=== PATIENT | female | born 2000 | race Caucasian/White ===

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

== ENCOUNTER 2021-04-09 16:19 | Emergency (ER) | payer OTHER ==
[~2021-04-09 16:19] MED LIST changes: +FAMOTIDINE20 MG PO; +HYDROXYZINE HCL10 MG PO; +NORETHINDRONE AC5 MG PO; +ONDANSETRON ODT4 MG PO; +WELLBUTRIN SR150 M1 PO; +ZOLOFT100 MG PO
[2021-04-09 19:54] LABS: HEMOGLOBIN 13.9 gm/dl (12.3-15.3); RED BLOOD COUNT 4.86 M/UL (4.00-5.10); WHITE BLOOD COUNT 12.2 K/UL (4.5-11.0)
[2021-04-09 20:22] LABS: BUN/CREATININE RATIO 10 (0-10)
== END 2021-04-09 23:01 | disposition home or self-care (01) ==
LOC: ER1 16:19
PROVIDERS: Emergency Medicine
DX: R10.31 Right lower quadrant pain (principal); Z90.49 Acquired absence of other specified parts of digestive tract
CPT/HCPCS: 80053; 81001; 83690; 84703; 85025; 87086; 96374; 96375; 99284; J2270; J2405; Q9967

== ENCOUNTER 2021-04-11 03:52 | Emergency (ER) | payer OTHER ==
[2021-04-11 04:52] LABS: HEMOGLOBIN 13.2 gm/dl (12.3-15.3); RED BLOOD COUNT 4.68 M/UL (4.00-5.10)
[2021-04-11 04:55] LABS: WHITE BLOOD COUNT 15.3 K/UL (4.5-11.0)
[2021-04-11 04:57] LABS: BUN/CREATININE RATIO 13 (0-10)
== END 2021-04-11 08:37 | disposition home or self-care (01) ==
LOC: ER1 03:52
PROVIDERS: Emergency Medicine
DX: J84.10 Pulmonary fibrosis, unspecified (principal); Z20.822 Contact with and (suspected) exposure to COVID-19
CPT/HCPCS: 0240U; 71045; 71250; 80053; 82550; 82553; 83874; 84484; 85025; 85379; 93005; 94664; 96374; 99285; J1885

== ENCOUNTER → 2021-04-17 | Outpatient (CLI) | payer BC, OTHER | LOC: RAD 12:54 | DX: M54.2 Cervicalgia (principal); M54.6 Pain in thoracic spine; M54.50 Low back pain, unspecified; M48.061 Spinal stenosis, lumbar region without neurogenic claudication | CPT/HCPCS: 72040; 72072; 72100 ==

== ENCOUNTER 2021-04-23 01:30 | Emergency (ER) | payer BC, OTHER ==
[2021-04-23] MEDS ORDERED: PREDNISONE50 MG PO (02:04)
[2021-04-23] MEDS ORDERED: BENADRYL 25MG C25 MG PO (02:04)
[2021-04-23] MEDS ORDERED: PEPCID20 MG PO (02:04)
== END 2021-04-23 02:20 | disposition home or self-care (01) ==
LOC: ER1 01:30
DX: L50.0 Allergic urticaria (principal); Z90.49 Acquired absence of other specified parts of digestive tract
CPT/HCPCS: 96372; 99282; J2930

== ENCOUNTER 2021-04-26 02:26 | Emergency (ER) | payer BC, OTHER ==
[~2021-04-26 02:26] MED LIST changes: +BENADRYL 25MG C25 MG PO; +PREDNISONE50 MG PO
[2021-04-26] MEDS ORDERED: MEDROL DOSEPAK 24 MG PO (05:19)
== END 2021-04-26 06:00 | disposition home or self-care (01) ==
LOC: ER1 02:26
DX: M54.42 Lumbago with sciatica, left side (principal)
CPT/HCPCS: 72131; 96372; 99283; J1885; J2930

== ENCOUNTER 2021-04-27 23:36 | Emergency (ER) | payer BC, OTHER ==
[~2021-04-27 23:36] MED LIST changes: +MEDROL DOSEPAK 24 MG PO
[2021-04-28] MEDS ORDERED: LODINE CAP 300300 MG PO (00:27)
== END 2021-04-28 00:51 | disposition home or self-care (01) ==
LOC: ER1 23:36
DX: M54.50 Low back pain, unspecified (principal); G89.29 Other chronic pain; Z90.49 Acquired absence of other specified parts of digestive tract
CPT/HCPCS: 96372; 99283; J1100; J1885; J2360

== ENCOUNTER → 2021-04-29 | Outpatient (CLI) | payer BC, OTHER ==
[~2021-04-29] MED LIST changes: +LODINE CAP 300300 MG PO
== END ==
LOC: HEART 5 13:40
DX: J84.10 Pulmonary fibrosis, unspecified (principal)
CPT/HCPCS: 94010

== ENCOUNTER 2021-05-26 21:51 | Emergency (ER) | payer OTHER ==
[2021-05-27] MEDS ORDERED: CEPHALEXIN500 M1 PO (00:38)
[2021-05-27] MEDS ORDERED: COLACE 100MG C100 MG PO (00:49)
== END 2021-05-27 01:21 | disposition home or self-care (01) ==
LOC: ER1 21:51
DX: J03.90 Acute tonsillitis, unspecified (principal); K59.00 Constipation, unspecified; R82.71 Bacteriuria; Z20.822 Contact with and (suspected) exposure to COVID-19
CPT/HCPCS: 0240U; 81001; 84703; 87081; 87086; 87880; 99283

== ENCOUNTER 2021-07-10 18:43 | Emergency (ER) | payer OTHER ==
[~2021-07-10 18:43] MED LIST changes: +CEPHALEXIN500 M1 PO; +COLACE 100MG C100 MG PO
[2021-07-10 20:48] LABS: HEMOGLOBIN 13.7 gm/dl (12.3-15.3); RED BLOOD COUNT 4.79 M/UL (4.00-5.10); WHITE BLOOD COUNT 13.6 K/UL (4.5-11.0)
[2021-07-10 21:18] LABS: BUN/CREATININE RATIO 14 (0-10)
[2021-07-10] MEDS ORDERED: IBUPROFEN800 MG PO (23:16)
== END 2021-07-10 23:49 | disposition home or self-care (01) ==
LOC: ER1 18:43
PROVIDERS: Preventive Medicine Occupational Medicine
DX: N83.202 Unspecified ovarian cyst, left side (principal); J45.909 Unspecified asthma, uncomplicated
CPT/HCPCS: 80053; 81001; 83690; 84703; 85025; 85652; 86140; 87086; 96374; 99284; J1885; Q9967

== ENCOUNTER → 2021-07-16 | Outpatient (CLI) | payer OTHER | LOC: HEART 5 04:30 | DX: R06.00 Dyspnea, unspecified (principal) | CPT/HCPCS: 94060; 94729 ==

== ENCOUNTER 2021-08-03 22:05 | Emergency (ER) | payer OTHER ==
[2021-08-03 23:07] LABS: HEMOGLOBIN 13.3 gm/dl (12.3-15.3); RED BLOOD COUNT 4.64 M/UL (4.00-5.10); WHITE BLOOD COUNT 9.8 K/UL (4.5-11.0)
[2021-08-03 23:41] LABS: BUN/CREATININE RATIO 12 (0-10)
[2021-08-04] MEDS ORDERED: ZOFRAN ODT 4 MG4 MG PO (00:42)
== END 2021-08-04 01:27 | disposition home or self-care (01) ==
LOC: ER1 22:05
PROVIDERS: Family Medicine
DX: R10.32 Left lower quadrant pain (principal); G89.29 Other chronic pain; R11.2 Nausea with vomiting, unspecified; Z87.42 Personal history of other diseases of the female genital tract
CPT/HCPCS: 80053; 81001; 83690; 84703; 85025; 96374; 96375; 99284; J2270; J2405

== ENCOUNTER 2021-11-25 19:07 | Observation (INO) | payer OTHER ==
[~2021-11-25] VITALS: Ht 149.9 cm; Wt 83.5 kg
[2021-11-25 19:40] LABS: HEMOGLOBIN 13.6 gm/dl (12.3-15.3); RED BLOOD COUNT 4.74 M/UL (4.00-5.10); WHITE BLOOD COUNT 12.6 K/UL (4.5-11.0)
[2021-11-25 19:56] LABS: BUN/CREATININE RATIO 13 (0-10)
[2021-11-26 05:49] LABS: HEMOGLOBIN 13.1 gm/dl (12.3-15.3); RED BLOOD COUNT 4.73 M/UL (4.00-5.10); WHITE BLOOD COUNT 11.1 K/UL (4.5-11.0)
[2021-11-26] MEDS ORDERED: PROAIR HFA8.5 GM INH (09:14)
[2021-11-27] MEDS ORDERED: HYDROCODONE-AC1 EACH PO (10:09)
[2021-11-27] MEDS ORDERED: IBUPROFEN600 MG PO (10:09)
[2021-11-27] MEDS ORDERED: DOCUSATE SODIU250 MG PO (10:09)
== END 2021-11-27 15:55 | disposition home or self-care (01) ==
LOC: ER1 19:07 → CDU 11-26 02:04 → M/S 11-26 02:04
PROVIDERS: Family Medicine; ADMIT Obstetrics & Gynecology
DX: N83.11 Corpus luteum cyst of right ovary (principal)
CPT/HCPCS: 76830; 80053; 81001; 83690; 84703; 85025; 93005; 94640; 94664; 94760; 96372; 96374; 96375; 96376; 99285; C1769; G0378; J1100; J1170; J1885; J2250; J2270; J2405; J2704; J2710; J3010; Q9967

== ENCOUNTER 2021-12-25 20:39 | Emergency (ER) | payer OTHER ==
[~2021-12-25 20:39] MED LIST changes: +DOCUSATE SODIU250 MG PO; +HYDROCODONE-AC1 EACH PO; +IBUPROFEN600 MG PO; +PROAIR HFA8.5 GM INH
[2021-12-25 21:26] LABS: RED BLOOD COUNT 4.86 M/UL (4.00-5.10); WHITE BLOOD COUNT 10.4 K/UL (4.5-11.0)
[2021-12-25 21:49] LABS: BUN/CREATININE RATIO 9 (0-10)
[2021-12-26] MEDS ORDERED: IBUPROFEN600 MG PO (00:06)
[2021-12-26] MEDS ORDERED: ZOFRAN ODT 4 MG4 MG PO (00:06)
[2021-12-26] MEDS ORDERED: PROVENTIL HFA6.7 GM INH (00:06)
[2021-12-26] MEDS ORDERED: BENZONATATE100 MG PO (00:06)
== END 2021-12-26 00:20 | disposition home or self-care (01) ==
LOC: ER1 20:39
PROVIDERS: Physician Assistant
DX: U07.1 COVID-19 (principal); J45.909 Unspecified asthma, uncomplicated; F17.290 Nicotine dependence, other tobacco product, uncomplicated
CPT/HCPCS: 36415; 71045; 80053; 84703; 85025; 85379; 85610; 85730; 96374; 99284; J2405; Q9967